=== PATIENT | female | born 1995 | race Caucasian/White ===

== ENCOUNTER 2022-08-08 15:01 | Emergency (ER) | payer SELFPAY ==
[~2022-08-08] VITALS: Ht 152 cm; Wt 85.0 kg
--- NOTE | 2022-08-08 15:24 | ED EENT ---
History of Present Illness General Chief Complaint: Oral/Throat Problems Stated Complaint: SORE THROAT Nursing Triage Note: PT REPORTS A SORE THROAT FOR OVER A WEEK NOW. HAD A NEG STREP AT URGENT CARE AND IS STILL HAVING PAINFUL SWALLOWING. Source: patient History of Present Illness Date Seen by Provider: Aug 08, 2022 Time Seen by Provider: 15:03 Initial Comments 27-year-old female presenting with complaints of sore throat and tonsil swelling that has been going on for approximately 10 to 12 days. She had gone to urgent care last week and they did a throat swab and told her it was negative for strep. She has been doing symptomatic treatment with Tylenol and ibuprofen [id number] but the throat was not improving. She was still having difficulty swallowing due to the swelling. She had previously had issues with her tonsils and throat when she was a teenager. She denies having fever, chills, nausea, vomiting, headache, nasal congestion, drainage down her throat. She also notes that it has been 2 months since her last menstrual period and she did a test at home that was negative. She last tested for a month ago. Timing/Duration: abrupt, other (10-12 days ago) Severity: moderate Location: throat Prearrival Treatment: over the counter meds Modifying Factors: Worse With Other (swallowing makes her throat hurt more) Associated Symptoms: No change in hearing; cough (dry intermittent); No drooling, No ear drainage, No facial pain/swelling, No fever, No malaise, No nasal congestion/drainage, No poor fluid intake, No poor solids intake, No sinus infection; sore throat; No tooth pain; voice change Allergies and Home Medications Allergies Coded Allergies: No Known Drug Allergies (Unverified , 08/08/22) Patient Home Medication List Home Medication List Reviewed: Yes Amoxicillin (Amoxicillin) 875 Mg Tablet, 875 MG PO BID Prescribed by: MARILYN ANGELES on 08/08/22 1627 Amoxicillin (Amoxicillin) 875 Mg Tablet, 875 MG PO BID Prescribed by: MARILYN ANGELES on 08/08/22 1609 Lidocaine HCl (Lidocaine HCl Viscous) 2 % Solution, 10 ML MM Q4H PRN for pharyngitis Prescribed by: MARILYN ANGELES on 08/08/22 1627 Lidocaine HCl (Lidocaine HCl Viscous) 2 % Solution, 10 ML MM Q4H PRN for throat pain Prescribed by: MARILYN ANGLEES on 08/08/22 3643 Review of Systems Review of Systems Constitutional: No chills, No dizziness, No fever Eyes: No Symptoms Reported Ears: No Symptoms Reported Nose: no symptoms reported Mouth: no symptoms reported Throat: see HPI, swelling, muffled, painful swallowing Respiratory: see HPI Cardiovascular: no symptoms reported Gastrointestinal: no symptoms reported Musculoskeletal: no symptoms reported Skin: no symptoms reported Neurological: No Symptoms Reported Past [id number]-[id number] Hx Patient Social History Tobacco Use?: No Use of E-Cig and/or Vaping dev: No Substance use?: No Alcohol Use?: No Pt feels they are or have been: No Physical Exam Vital Signs Vital Signs - First Documented 08/08/22 15:10 Temp 36.7 Pulse 76 Resp 16 B/P (MAP) 140/71 (94) Pulse Ox 100 O2 Delivery Room Air Height, Weight, BMI Height: '" Weight: lbs. oz. kg; BMI Method: General Appearance: WD/WN, no apparent distress Eyes: bilateral eye PERRL, bilateral eye EOMI Mouth/Throat: normal mouth inspection; No dental tenderness; pharynx swelling; No tonsillar exudate; tonsillar swelling; No trismus, No uvula swelling; voice changes (muffled) Neck: non-tender, full range of motion, supple, normal inspection Cardiovascular: normal peripheral pulses, regular rate, rhythm Respiratory: chest non-tender, lungs clear, normal breath sounds Neurologic/Psychiatric: alert Skin: normal color, warm/dry; No rash Progress/Results/Core Measures Results/Orders Lab Results Laboratory Tests Test 08/08/22 15:10 Range/Units Group A Streptococcus Screen POSITIVE H NEGATIVE My Orders Orders - MARILYN ANGELES MD Dexamethasone Injection (Decadron Inje (08/08/22 15:17) Rapid Strep A Screen (08/08/22 15:18) Urine Bedside (08/08/22 15:18) Vital Signs/I&O 08/08/22 08/08/22 15:10 16:06 Temp 36.7 36.7 Pulse 76 76 Resp 16 16 B/P (MAP) 140/71 (94) 140/71 Pulse Ox 100 100 O2 Delivery Room Air Room Air Blood Pressure Mean: 94 Progress Progress Note #1: Progress Note Potential diagnosis of viral pharyngitis, strep pharyngitis, peritonsillar abscess, allergies. Obtain a rapid strep swab to check for strep throat. Obtain a urine to look for possible since her last menstrual cycle was 2 months ago. Order a dexamethasone injection 10 mg IM to try and help with the swelling and pain in her throat while waiting on test results. Progress Note #2: Progress Note Urine bedside test was negative. The rapid strep swab was positive. Counseled patient on the findings of these 2 test. Will treat her with antibiotics to help with the strep throat. Patient was offered a penicillin shot to treat for the strep throat since she is already been sick for 10 days. She had already received the dexamethasone 10 mg IM shot. She opted for oral antibiotics instead of an injection. We will send a prescription for amoxicillin 875 mg p.o. twice daily x10 days for strep throat. Patient also requested viscous lidocaine as she has had that previously for throat infections and felt like it helped a lot for her swallowing. We will send a prescription for viscous lidocaine 10 mL gargle and spit every 4 hours as needed throat pain. Dispense 120 mL for 2-day course. Encourage fluids and hydration. May continue to use [id number] acetaminophen and ibuprofen if needed for pain. Check back with primary care about missed menstrual period. Departure Impression Primary Impression: Streptococcal pharyngitis Additional Impressions: Swollen tonsil Missed menses Disposition: 01 HOME, SELF-CARE Condition: Stable Departure-Patient Inst. Decision time for Depature: 15:55 Referrals: [facility]KER MD (PCP) Primary Care Physician Patient Instructions: Strep Throat ED, Sore Throat, Adult ED Add. Discharge Instructions: Take the full course of antibiotics to treat for strep throat. Stay well-hydrated and drink plenty of fluids. You may continue with acetaminophen and ibuprofen [id number] to help treat for pain. Use the viscous lidocaine to help with throat pain. The steroid shot that you got here should also help with pain and swelling of your throat. Check back with your primary care provider for continued concerns and if you continue to be late on your menstrual period. All discharge instructions reviewed with patient and/or family. Voiced understanding. Scripts Lidocaine HCl (Lidocaine HCl Viscous) 2 % Solution 10 ML MM Q4H PRN for throat pain for 2 Days, #120 ML 0 Refills Gargle and spit 10 mL of viscous lidocatine every 4 hours as needed for throat pain Prov: MARILYN ANGELES MD 08/08/22 Amoxicillin (Amoxicillin) 875 Mg Tablet 875 MG PO BID for strep pharyngitis for 10 Days, #20 TAB 0 Refills Prov: MARILYN ANGELES MD 08/08/22 Lidocaine HCl (Lidocaine HCl Viscous) 2 % Solution 10 ML MM Q4H PRN for pharyngitis for 2 Days, #120 ML 0 Refills Prov: MARILYN ANGELES MD 08/08/22 Amoxicillin (Amoxicillin) 875 Mg Tablet 875 MG PO BID for Strep Pharyngitis for 10 Days, #20 TAB 0 Refills Prov: MARILYN ANGELES MD 08/08/22 MARILYN ANGELES MD Aug 08, 2022 15:24
[2022-08-08 16:06] VITALS: BP 140/71
[2022-08-08] MEDS ORDERED: LIDO20SO23 MM ×2 (16:06→16:09)
[2022-08-08] MEDS ORDERED: AMOX875T2 PO ×2 (16:06→16:09)
== END 2022-08-08 16:11 | disposition home or self-care (01) ==
LOC: ER FS 15:04
DX: J02.0 Streptococcal pharyngitis (principal); N92.6 Irregular menstruation, unspecified
CPT/HCPCS: 84703; 87430; 99284